=== PATIENT | female | born 1940 | race Hispanic/Latino ===

== ENCOUNTER 2021-06-28 12:55 | Inpatient (IN) | payer OTHER ==
[~2021-06-28] VITALS: Ht 152.4 cm; Wt 70.3 kg
[2021-06-28] VITALS (15 sets, daily range): BP systolic 88–174; BP diastolic 56–94
[2021-06-28] MEDS ORDERED: CEFAZOLIN SODIUM 1 GM VIAL ONE ×3 (13:03→16:42)
[2021-06-28] MEDS ORDERED: PAPAVERINE HCL 30 MG/ML 2ML VIAL ONE (13:04)
[2021-06-28] MEDS ORDERED: ESMOLOL HCL 10 MG/ML 10 ML VIAL ONE (13:20)
[2021-06-28] MEDS ORDERED: HEPARIN 10,000 UNIT/10ML (1,000 UNIT/ML) VIAL ONE ×2 (13:20→13:34)
[2021-06-28] MEDS ORDERED: LIDOCAINE PF 100MG/5ML (2%) SYRINGE 5ML ONE (13:20)
[2021-06-28] MEDS ORDERED: PROTAMINE SULFATE 10 MG/ML 25ML VIAL IV ONE (13:20)
[2021-06-28] MEDS ORDERED: NOREPINEPHRINE BITARTRATE 1 MG/1 ML ML IV ONE (13:21)
[2021-06-28] MEDS ORDERED: AMINOCAPROIC ACID 5,000MG VIAL ONE (13:21)
[2021-06-28] MEDS ORDERED: ROCURONIUM 10MG/1ML SYR 10 MG/ML ML ONE (13:21)
[2021-06-28] MEDS ORDERED: EPINEPHRINE PF 1MG AMP ONE (13:21)
[2021-06-28] MEDS ORDERED: SODIUM BICARB 50MEQ 50ML VIAL 150 ML ONE (13:21)
[2021-06-28 13:32] LABS: HEMATOCRIT 37.9 % (36-48); MEAN CORPUSCULAR HEMOGLOBIN 29.7 pg (27.0-33.0); MEAN CORPUSCULAR HGB CONC 32.5 g/dL (32.0-36.0); MEAN CORPUSCULAR VOLUME 91.5 fL (79-99); RED BLOOD CELL COUNT(AUTO) 4.14 MIL/uL (4.00-5.50); WHITE BLOOD COUNT (AUTO) 11.9 K/uL (4.8-10.8)
[2021-06-28 13:44] LABS: ABG BASE EXCESS -5.1 mmol/L (-2.0-3.0); ABG HCO3 19.4 mmol/L (21.0-28.0); ABG OXYGEN SATURATION 98.6 % (95.0-99.0); ABG PCO2 35 mmHg (32-45)
[2021-06-28 13:49] LABS: HEMOGLOBIN A1C 7.6 % (4.0-6.0)
[2021-06-28 13:50] LABS: INR 1.07 (0.85-1.15); PROTHROMBIN TIME 11.6 SEC (9.6-11.6)
[2021-06-28] MEDS ORDERED: POTASSIUM CHLORIDE 20MEQ/100ML 200 ML IV ONE ×2 (13:51→14:47)
[2021-06-28] MEDS ORDERED: INSULIN HUMULIN R 100 UNIT/ML 3ML ONE (13:52)
[2021-06-28 13:53] LABS: ALBUMIN 2.4 g/dL (3.5-5.0); BILIRUBIN,TOTAL 0.7 mg/dL (0.2-1.0); CREATININE 0.5 mg/dL (0.5-1.5); TOTAL PROTEIN, SERUM 5.6 g/dL (6.0-8.3)
[2021-06-28 13:55] LABS: POTASSIUM 2.5 mmol/L (3.5-5.1)
[2021-06-28] MEDS ORDERED: FENTANYL CITRATE PF 50 MCG/1 ML 2ML VIAL ONE ×5 (14:12→14:13)
[2021-06-28 14:34] LABS: ABG BASE EXCESS -3.1 mmol/L (-2.0-3.0); ABG HCO3 23.9 mmol/L (21.0-28.0); ABG OXYGEN SATURATION 98.3 % (95.0-99.0); ABG PCO2 51 mmHg (32-45)
[2021-06-28] MEDS ORDERED: ROCURONIUM BROMIDE 10MG/1ML 5ML VL ONE (14:47)
[2021-06-28 15:04] LABS: ABG BASE EXCESS -7.9 mmol/L (-2.0-3.0); ABG HCO3 18.9 mmol/L (21.0-28.0); ABG OXYGEN SATURATION 98.5 % (95.0-99.0); ABG PCO2 44 mmHg (32-45)
[2021-06-28] MEDS ORDERED: AMIODARONE 150MG VIAL ONE ×2 (15:18→16:28)
[2021-06-28] MEDS ORDERED: GLYCOPYRROLATE 1 MG/5 ML SYRINGE ONE (15:22)
[2021-06-28] MEDS ORDERED: 0.9%NACL 1000ML 1,000 ML IV ONE (15:23)
[2021-06-28] MEDS ORDERED: ATROPINE 1MG SYG IVP ONE (15:32)
[2021-06-28] MEDS ORDERED: COAGULATION FACTOR VIIA RECOMB 1 MG VIAL ONE (15:34)
[2021-06-28] MEDS ORDERED: NITROGLYCERIN 50MG/D5W 250ML 1 BOT ONE (15:40)
[2021-06-28 15:53] LABS: ABG BASE EXCESS -4.9 mmol/L (-2.0-3.0); ABG HCO3 19.1 mmol/L (21.0-28.0); ABG OXYGEN SATURATION 98.4 % (95.0-99.0); ABG PCO2 32 mmHg (32-45)
[2021-06-28] MEDS ORDERED: ALBUMIN (HUMAN) 5% 250 ML IV PRN (16:00)
[2021-06-28] MEDS ORDERED: MORPHINE 4 MG SYG IV PRN (16:00)
[2021-06-28] MEDS ORDERED: 0.9% NACL 500ML IV.SOLN 500 ML IV SCH (16:00)
[2021-06-28] MEDS ORDERED: AMINOCAPROIC ACID 5,000MG VIAL 15,000 MG in 0.9% NACL 250ML 250 ML IV SCH (16:00)
[2021-06-28] MEDS ORDERED: ONDANSETRON 4MG INJ IV PRN (16:00)
[2021-06-28] MEDS ORDERED: GLUCAGON 1MG KIT 1 MG ML IM PRN (16:00)
[2021-06-28] MEDS ORDERED: TRAMADOL HCL 50 MG TABLET PO PRN (16:00)
[2021-06-28] MEDS ORDERED: NITROGLYCERIN 50MG/D5W 250ML 250 BOT IV SCH (16:00)
[2021-06-28] MEDS ORDERED: MORPHINE 2 MG SYG IV PRN (16:00)
[2021-06-28] MEDS ORDERED: ACETAMINOPHEN 650 MG SUPPOSITORY RC PRN (16:00)
[2021-06-28] MEDS ORDERED: 0.9%NACL 10ML VIAL IVP PRN (16:00)
[2021-06-28] MEDS ORDERED: 0.9%NACL 1000ML 1,000 ML IV SCH (16:00)
[2021-06-28] MEDS ORDERED: POTASSIUM PHOS 15 mMOL+NS250ML 250 ML IV PRN (16:00)
[2021-06-28] MEDS ORDERED: DEXTROSE 50%-WATER 50 ML DISP.SYRIN IV PRN (16:00)
[2021-06-28] MEDS ORDERED: FENTANYL CITRATE PF 50 MCG/1 ML 20ML VIAL IJ ONE (16:16)
[2021-06-28 16:19] LABS: ABG BASE EXCESS -9.5 mmol/L (-2.0-3.0); ABG HCO3 13.8 mmol/L (21.0-28.0); ABG PCO2 24 mmHg (32-45)
[2021-06-28] MEDS ORDERED: SODIUM BICARB 8.4% 50ML SYRINGE ONE (16:21)
[2021-06-28] MEDS ORDERED: MAGNESIUM SULFATE 1 GM/2 ML VIAL ONE (16:29)
[2021-06-28 16:53] LABS: ABG BASE EXCESS -3.9 mmol/L (-2.0-3.0); ABG HCO3 22.1 mmol/L (21.0-28.0); ABG OXYGEN SATURATION 75.8 % (95.0-99.0); ABG PCO2 44 mmHg (32-45)
[2021-06-28] MEDS ORDERED: EPHEDRINE SULFATE 50 MG/ML AMPULE ONE (17:06)
[2021-06-28] MEDS ORDERED: MIDAZOLAM HCL 1 MG/ML 5ML VIAL ONE (17:17)
[2021-06-28] MEDS ORDERED: VASOPRESSIN 20 UNITS/ML 1ML VIAL ONE (17:18)
[2021-06-28] MEDS ORDERED: ALBUTEROL INHALER 90MCG/INH IH ONE (17:27)
[2021-06-28 17:28] LABS: ABG BASE EXCESS -5.7 mmol/L (-2.0-3.0); ABG HCO3 19.9 mmol/L (21.0-28.0); ABG OXYGEN SATURATION 93.8 % (95.0-99.0); ABG PCO2 39 mmHg (32-45)
[2021-06-28 18:07] LABS: ABG BASE EXCESS -4.7 mmol/L (-2.0-3.0); ABG HCO3 20.9 mmol/L (21.0-28.0); ABG OXYGEN SATURATION 89.5 % (95.0-99.0); ABG PCO2 41 mmHg (32-45)
[2021-06-28] MEDS ORDERED: ALBUMIN (HUMAN) 25% 50 ML IV ONE (18:07)
[2021-06-28] MEDS ORDERED: MANNITOL 25% 50ML VIAL IV ONE (18:07)
[2021-06-28] MEDS ORDERED: SODIUM BICARB 8.4% 50ML SYRINGE IVP ONE ×3 (18:07)
[2021-06-28] MEDS ORDERED: AMIODARONE 150MG VIAL IV ONE (18:07)
[2021-06-28] MEDS ORDERED: HEPARIN 10,000 UNIT/10ML (1,000 UNIT/ML) VIAL IV ONE (18:07)
[2021-06-28] MEDS ORDERED: AMINOCAPROIC ACID 5,000MG VIAL IV ONE (18:07)
[2021-06-28] MEDS ORDERED: MAGNESIUM SULFATE 1 GM/2 ML VIAL IM ONE ×3 (18:07)
[2021-06-28] MEDS ORDERED: PHENYLEPHRINE HCL 10 MG/ML 1ML VIAL IV ONE (18:07)
[2021-06-28] MEDS ORDERED: EPINEPHRINE 1MG SYG 10ML IVP ONE ×2 (18:07)
[2021-06-28] MEDS ORDERED: CACL 1GM SYG IVP ONE ×2 (18:07)
[2021-06-28 18:10] LABS: HEMATOCRIT 35.8 % (36-48); MEAN CORPUSCULAR HEMOGLOBIN 30.2 pg (27.0-33.0); MEAN CORPUSCULAR HGB CONC 32.7 g/dL (32.0-36.0); MEAN CORPUSCULAR VOLUME 92.3 fL (79-99); RED BLOOD CELL COUNT(AUTO) 3.88 MIL/uL (4.00-5.50); RED CELL DISTRIBUTION WIDTH 14.2 % (11.0-15.5); WHITE BLOOD COUNT (AUTO) 20.1 K/uL (4.8-10.8)
[2021-06-28] MEDS ORDERED: IPRATROPIUM/ALBUTEROL SULFATE 3 ML SOLUTION IH ONE (18:13)
[2021-06-28 18:21] LABS: INR 0.89 (0.85-1.15); MAGNESIUM 2.6 mg/dL (1.80-2.40); PHOSPHORUS 1.4 mg/dL (2.5-4.9); PROTHROMBIN TIME 9.8 SEC (9.6-11.6)
[2021-06-28 18:22] LABS: PARTIAL THROMBOPLASTIN TIME 28.2 SEC (26.3-35.5)
[2021-06-28 18:27] LABS: POTASSIUM 1.9 mmol/L (3.5-5.1)
[2021-06-28] MEDS ORDERED: AMIODARONE 900MG VIAL 900 MG in DEXTROSE 5%-WATER 500 ML IV SCH (18:30)
[2021-06-28 20:20] LABS: ABG BASE EXCESS 1.6 mmol/L (-2.0-3.0); ABG HCO3 26.2 mmol/L (21.0-28.0); ABG OXYGEN SATURATION 95.1 % (95.0-99.0); ABG PCO2 41 mmHg (32-45)
[2021-06-28] MEDS ORDERED: POTASSIUM CHLORIDE 10MEQ/100ML 100 ML IV ONE (20:27)
[2021-06-28] MEDS: CEFAZOLIN SODIUM 1 GM VIAL IV SCH (20:32)
[2021-06-28] MEDS: FAMOTIDINE 20MG VIAL IV SCH (20:32)
[2021-06-28 21:10] LABS: ABG BASE EXCESS 0.3 mmol/L (-2.0-3.0); ABG HCO3 24.9 mmol/L (21.0-28.0); ABG OXYGEN SATURATION 91.2 % (95.0-99.0); ABG PCO2 40 mmHg (32-45)
[2021-06-28] MEDS ORDERED: SOLU-MEDROL 40MG VIAL ONE (21:52)
[2021-06-28] MEDS: POTASSIUM CHLORIDE 20MEQ/100ML 100 ML IV PRN ×2 (21:54→23:11)
[2021-06-28] MEDS: SOLU-MEDROL 40MG VIAL IVP SCH (22:12)
[2021-06-28 22:13] LABS: ABG BASE EXCESS -0.1 mmol/L (-2.0-3.0); ABG HCO3 24.1 mmol/L (21.0-28.0); ABG OXYGEN SATURATION 90.6 % (95.0-99.0); ABG PCO2 38 mmHg (32-45)
[2021-06-28 23:16] LABS: ABG BASE EXCESS 2.1 mmol/L (-2.0-3.0); ABG HCO3 26.7 mmol/L (21.0-28.0); ABG PCO2 42 mmHg (32-45)
[2021-06-29] VITALS (38 sets, daily range): BP systolic 90–163; BP diastolic 48–91
[2021-06-29 00:13] LABS: ABG BASE EXCESS 1.7 mmol/L (-2.0-3.0); ABG HCO3 26.3 mmol/L (21.0-28.0); ABG OXYGEN SATURATION 91.3 % (95.0-99.0); ABG PCO2 41 mmHg (32-45)
[2021-06-29] MEDS: POTASSIUM CHLORIDE 20MEQ/100ML 100 ML IV PRN ×8 (00:33→15:56)
[2021-06-29 01:05] LABS: ABG BASE EXCESS 1.8 mmol/L (-2.0-3.0); ABG HCO3 25.9 mmol/L (21.0-28.0); ABG OXYGEN SATURATION 95.4 % (95.0-99.0); ABG PCO2 39 mmHg (32-45)
[2021-06-29] MEDS ORDERED: NOREPINEPHRINE 8MG/NS 250 ML 250 ML IV ONE ×2 (01:33→17:48)
[2021-06-29] MEDS: INSULIN REGULAR, HUMAN 3ML 100 UNIT in 0.9%NACL 100ML 99 ML IV SCH ×4 (01:56→13:52)
[2021-06-29 02:12] LABS: ABG BASE EXCESS -1.5 mmol/L (-2.0-3.0); ABG HCO3 22.2 mmol/L (21.0-28.0); ABG OXYGEN SATURATION 92.5 % (95.0-99.0); ABG PCO2 35 mmHg (32-45)
[2021-06-29 03:10] LABS: ABG BASE EXCESS -0.1 mmol/L (-2.0-3.0); ABG HCO3 23.5 mmol/L (21.0-28.0); ABG OXYGEN SATURATION 86.8 % (95.0-99.0); ABG PCO2 35 mmHg (32-45)
[2021-06-29] MEDS: SOLU-MEDROL 40MG VIAL IVP SCH ×3 (03:31→15:04)
[2021-06-29] MEDS: EPINEPHRINE PF 1MG AMP 10 MG in DEXTROSE 5%-WATER 250 ML IV PRN (03:38)
[2021-06-29] MEDS: VASOPRESSIN 40 UNITS in 0.9%NACL 50ML 40 ML IV PRN (03:39)
[2021-06-29 04:03] LABS: ABG BASE EXCESS 1.9 mmol/L (-2.0-3.0); ABG HCO3 24.7 mmol/L (21.0-28.0); ABG OXYGEN SATURATION 95.8 % (95.0-99.0); ABG PCO2 33 mmHg (32-45)
[2021-06-29 04:23] LABS: HEMATOCRIT 35.5 % (36-48); MEAN CORPUSCULAR HEMOGLOBIN 29.8 pg (27.0-33.0); MEAN CORPUSCULAR VOLUME 90.6 fL (79-99); NUCLEATED RED BLOOD CELLS 0.1 % (0.0-0.19); RED BLOOD CELL COUNT(AUTO) 3.92 MIL/uL (4.00-5.50); RED CELL DISTRIBUTION WIDTH 14.5 % (11.0-15.5); WHITE BLOOD COUNT (AUTO) 18.2 K/uL (4.8-10.8)
[2021-06-29] MEDS: CEFAZOLIN SODIUM 1 GM VIAL IV SCH ×2 (04:33→13:06)
[2021-06-29] MEDS: SODIUM BICARB 50MEQ 50ML VIAL IV PRN (04:39)
[2021-06-29 04:41] LABS: INR 1.05 (0.85-1.15); PROTHROMBIN TIME 11.4 SEC (9.6-11.6)
[2021-06-29 04:42] LABS: PARTIAL THROMBOPLASTIN TIME 31.6 SEC (26.3-35.5)
[2021-06-29 04:51] LABS: ALBUMIN 2.7 g/dL (3.5-5.0); BILIRUBIN,TOTAL 0.4 mg/dL (0.2-1.0); CREATININE 1.3 mg/dL (0.5-1.5); MAGNESIUM 1.8 mg/dL (1.80-2.40); PHOSPHORUS 0.8 mg/dL (2.5-4.9)
[2021-06-29 05:05] LABS: ABG BASE EXCESS 0.6 mmol/L (-2.0-3.0); ABG HCO3 23.3 mmol/L (21.0-28.0); ABG OXYGEN SATURATION 95.5 % (95.0-99.0); ABG PCO2 31 mmHg (32-45)
[2021-06-29 06:28] LABS: ABG BASE EXCESS 0.7 mmol/L (-2.0-3.0); ABG HCO3 23.5 mmol/L (21.0-28.0); ABG OXYGEN SATURATION 94.2 % (95.0-99.0); ABG PCO2 32 mmHg (32-45)
[2021-06-29 07:43] LABS: ABG BASE EXCESS 0.9 mmol/L (-2.0-3.0); ABG HCO3 23.7 mmol/L (21.0-28.0); ABG OXYGEN SATURATION 98.2 % (95.0-99.0); ABG PCO2 32 mmHg (32-45)
[2021-06-29] MEDS: CALCIUM GLUC 1GM VIAL 1 GM in 0.9%NACL 50ML 50 ML IV PRN ×2 (07:55→17:44)
[2021-06-29] MEDS: MAGNESIUM 2GM PREMIX 50ML 50 ML IV PRN (07:55)
[2021-06-29] MEDS: FAMOTIDINE 20MG VIAL IV SCH ×2 (08:30→21:37)
[2021-06-29 09:11] LABS: ABG BASE EXCESS 2.2 mmol/L (-2.0-3.0); ABG OXYGEN SATURATION 98.4 % (95.0-99.0); ABG PCO2 33 mmHg (32-45)
[2021-06-29] MEDS: PROPOFOL 1000 MG/100 ML 100 ML IV PRN ×3 (09:53→23:30)
[2021-06-29 10:09] LABS: ABG BASE EXCESS 1.9 mmol/L (-2.0-3.0); ABG HCO3 24.5 mmol/L (21.0-28.0); ABG OXYGEN SATURATION 97.1 % (95.0-99.0); ABG PCO2 31 mmHg (32-45)
[2021-06-29] MEDS ORDERED: MILRINONE-D5W 20 MG/100 ML 100 ML IV ONE (10:26)
[2021-06-29 11:31] LABS: ABG PCO2 31 mmHg (32-45)
[2021-06-29 11:32] LABS: ABG BASE EXCESS 1.6 mmol/L (-2.0-3.0); ABG HCO3 24.2 mmol/L (21.0-28.0); ABG OXYGEN SATURATION 95.1 % (95.0-99.0)
[2021-06-29 14:13] LABS: ABG BASE EXCESS 0.9 mmol/L (-2.0-3.0); ABG HCO3 23.4 mmol/L (21.0-28.0); ABG OXYGEN SATURATION 96.4 % (95.0-99.0); ABG PCO2 30 mmHg (32-45)
[2021-06-29] MEDS: TRAMADOL HCL 50 MG TABLET PO PRN (14:47)
[2021-06-29] MEDS ORDERED: ZOSYN 3.375GM+NS 50ML 3.38 GM in 0.9%NACL 50ML 50 ML IV SCH (15:00)
[2021-06-29] MEDS ORDERED: ZOSYN IV SCH (15:00)
[2021-06-29] MEDS ORDERED: FUROSEMIDE 20MG VIAL IV SCH (15:00)
[2021-06-29] MEDS ORDERED: [UNRECOGNIZED DRUG - OTHER] IV SCH (15:00)
[2021-06-29] MEDS ORDERED: ZOSYN 3.375GM+NS 50ML 50 ML IV SCH (16:00)
[2021-06-29 17:26] LABS: ABG BASE EXCESS -1.2 mmol/L (-2.0-3.0); ABG HCO3 21.3 mmol/L (21.0-28.0); ABG PCO2 28 mmHg (32-45)
[2021-06-29] MEDS: MEROPENEM 1 GM VIAL IVP SCH (20:00)
[2021-06-29 21:08] LABS: ABG BASE EXCESS 0.5 mmol/L (-2.0-3.0); ABG OXYGEN SATURATION 96.5 % (95.0-99.0); ABG PCO2 28 mmHg (32-45)
[2021-06-29] MEDS: ATORVASTATIN 20 MG TABLET PO SCH (21:37)
[2021-06-30] VITALS (57 sets, daily range): BP systolic 53–175; BP diastolic 28–83
[2021-06-30 01:01] LABS: ABG BASE EXCESS 1.9 mmol/L (-2.0-3.0); ABG HCO3 24.7 mmol/L (21.0-28.0); ABG OXYGEN SATURATION 93.1 % (95.0-99.0); ABG PCO2 31 mmHg (32-45)
[2021-06-30 04:03] LABS: ABG BASE EXCESS 0.5 mmol/L (-2.0-3.0); ABG HCO3 23.4 mmol/L (21.0-28.0); ABG OXYGEN SATURATION 92.2 % (95.0-99.0); ABG PCO2 31 mmHg (32-45)
[2021-06-30] MEDS: POTASSIUM CHLORIDE 20MEQ/100ML 100 ML IV PRN ×4 (04:04→20:13)
[2021-06-30] MEDS: INSULIN REGULAR, HUMAN 3ML 100 UNIT in 0.9%NACL 100ML 99 ML IV SCH ×2 (04:06)
[2021-06-30] MEDS: EPINEPHRINE PF 1MG AMP 10 MG in DEXTROSE 5%-WATER 250 ML IV PRN ×2 (04:07→15:22)
[2021-06-30 04:29] LABS: HEMATOCRIT 24.4 % (36-48); MEAN CORPUSCULAR HEMOGLOBIN 30.4 pg (27.0-33.0); MEAN CORPUSCULAR HGB CONC 32.8 g/dL (32.0-36.0); MEAN CORPUSCULAR VOLUME 92.8 fL (79-99); NUCLEATED RED BLOOD CELLS 0.4 % (0.0-0.19); RED BLOOD CELL COUNT(AUTO) 2.63 MIL/uL (4.00-5.50); WHITE BLOOD COUNT (AUTO) 20.1 K/uL (4.8-10.8)
[2021-06-30 04:43] LABS: INR 1.04 (0.85-1.15); PROTHROMBIN TIME 11.3 SEC (9.6-11.6)
[2021-06-30 04:45] LABS: PARTIAL THROMBOPLASTIN TIME 26.1 SEC (26.3-35.5)
[2021-06-30 04:46] LABS: ALBUMIN 2.9 g/dL (3.5-5.0); BILIRUBIN,TOTAL 0.8 mg/dL (0.2-1.0); CREATININE 0.9 mg/dL (0.5-1.5); MAGNESIUM 1.7 mg/dL (1.80-2.40); POTASSIUM 3.5 mmol/L (3.5-5.1)
[2021-06-30] MEDS: PROPOFOL 1000 MG/100 ML 100 ML IV PRN (05:23)
[2021-06-30] MEDS: MEROPENEM 1 GM VIAL IVP SCH ×2 (06:44→17:35)
[2021-06-30] MEDS: MAGNESIUM 2GM PREMIX 50ML 50 ML IV PRN (06:45)
[2021-06-30] MEDS: FAMOTIDINE 20MG VIAL IV SCH ×2 (08:04→20:12)
[2021-06-30] MEDS: ASPIRIN 81MG CHEW TAB PO SCH (08:05)
[2021-06-30] MEDS: TRAMADOL HCL 50 MG TABLET PO PRN (08:05)
[2021-06-30] MEDS: CALCIUM GLUC 1GM VIAL 1 GM in 0.9%NACL 50ML 50 ML IV PRN ×2 (08:05→16:47)
[2021-06-30] MEDS ORDERED: FUROSEMIDE 20MG VIAL IV SCH (09:00)
[2021-06-30 09:08] LABS: ABG HCO3 22.5 mmol/L (21.0-28.0); ABG OXYGEN SATURATION 97.7 % (95.0-99.0); ABG PCO2 30 mmHg (32-45)
[2021-06-30] MEDS ORDERED: FUROSEMIDE 100MG VIAL 100 MG in 0.9%NACL 100ML 100 ML IV SCH (09:30)
[2021-06-30] MEDS ORDERED: NOREPINEPHRINE 8MG/NS 250 ML 250 ML IV ONE (10:35)
[2021-06-30 11:15] LABS: ABG BASE EXCESS -4.6 mmol/L (-2.0-3.0); ABG HCO3 18.6 mmol/L (21.0-28.0); ABG OXYGEN SATURATION 78.4 % (95.0-99.0); ABG PCO2 28 mmHg (32-45)
[2021-06-30] MEDS ORDERED: ENOXAPARIN SODIUM 1 MG/KG SQ ONE (11:30)
[2021-06-30] MEDS ORDERED: ENOXAPARIN SODIUM 80 MG/0.8 ML SQ SCH (11:30)
[2021-06-30 12:06] LABS: ABG BASE EXCESS 1.8 mmol/L (-2.0-3.0); ABG HCO3 24.7 mmol/L (21.0-28.0); ABG OXYGEN SATURATION 98.5 % (95.0-99.0); ABG PCO2 33 mmHg (32-45)
[2021-06-30] MEDS ORDERED: FENTANYL 2500MCG+NS 250ML 250 ML IV ONE (12:10)
[2021-06-30] MEDS ORDERED: MIDAZOLAM 100MG-0.9% NS 100ML 100 ML IV ONE (12:11)
[2021-06-30] MEDS ORDERED: FENTANYL CITRATE PF 0.05 MG/ML 1,000 MCG in 0.9%NACL 100ML 100 ML IVPB SCH (12:30)
[2021-06-30] MEDS ORDERED: MIDAZOLAM 100MG-0.9% NS 100ML 100ML BAG IV SCH (12:30)
[2021-06-30] MEDS ORDERED: FENTANYL 2500MCG+NS 250ML 250 ML IV SCH (12:30)
[2021-06-30] MEDS: SODIUM BICARB 50MEQ 50ML VIAL IV PRN ×2 (12:33→15:50)
[2021-06-30] MEDS: INSULIN HUMULIN R 100 UNIT/ML 3ML SQ SCH ×2 (12:47→17:35)
[2021-06-30] MEDS ORDERED: IOHEXOL 350 MG/ML 100ML INFUS..BTL IV ONE (13:30)
[2021-06-30] MEDS ORDERED: MILRINONE-D5W 20 MG/100 ML 100 ML IV ONE (15:20)
[2021-06-30 15:43] LABS: ABG BASE EXCESS -3.3 mmol/L (-2.0-3.0); ABG HCO3 20.1 mmol/L (21.0-28.0); ABG PCO2 31 mmHg (32-45)
[2021-06-30 19:54] LABS: ABG BASE EXCESS 1.8 mmol/L (-2.0-3.0); ABG HCO3 24.9 mmol/L (21.0-28.0); ABG OXYGEN SATURATION 97.9 % (95.0-99.0); ABG PCO2 34 mmHg (32-45)
[2021-06-30] MEDS: ACETAMINOPHEN 325 MG TAB PO PRN (20:11)
[2021-06-30] MEDS: ATORVASTATIN 20 MG TABLET PO SCH (20:11)
[2021-06-30] MEDS ORDERED: FUROSEMIDE 40MG VIAL IV SCH (21:00)
[2021-06-30] MEDS: VASOPRESSIN 40 UNITS in 0.9%NACL 50ML 40 ML IV PRN (21:06)
[2021-06-30 23:13] LABS: CREATININE 1.2 mg/dL (0.5-1.5); MAGNESIUM 1.9 mg/dL (1.80-2.40); POTASSIUM 3.8 mmol/L (3.5-5.1)
[2021-07-01] VITALS (69 sets, daily range): BP systolic 90–148; BP diastolic 40–72
[2021-07-01 00:08] LABS: ABG BASE EXCESS 1.7 mmol/L (-2.0-3.0); ABG HCO3 24.3 mmol/L (21.0-28.0); ABG OXYGEN SATURATION 98.7 % (95.0-99.0); ABG PCO2 31 mmHg (32-45)
[2021-07-01] MEDS: NOREPINEPHRINE 4MG/NS 250ML 250 ML IV PRN (00:17)
[2021-07-01] MEDS: POTASSIUM CHLORIDE 20MEQ/100ML 100 ML IV PRN ×4 (01:15→16:36)
[2021-07-01] MEDS: INSULIN HUMULIN R 100 UNIT/ML 3ML SQ SCH ×4 (01:30→17:46)
[2021-07-01] MEDS: MAGNESIUM 2GM PREMIX 50ML 50 ML IV PRN (02:51)
[2021-07-01 03:55] LABS: ABG BASE EXCESS 1.3 mmol/L (-2.0-3.0); ABG HCO3 24.7 mmol/L (21.0-28.0); ABG OXYGEN SATURATION 96.7 % (95.0-99.0); ABG PCO2 35 mmHg (32-45)
[2021-07-01 04:13] LABS: HEMATOCRIT 30.7 % (36-48); MEAN CORPUSCULAR HEMOGLOBIN 29.7 pg (27.0-33.0); MEAN CORPUSCULAR HGB CONC 31.6 g/dL (32.0-36.0); MEAN CORPUSCULAR VOLUME 93.9 fL (79-99); NUCLEATED RED BLOOD CELLS 4.1 % (0.0-0.19); RED BLOOD CELL COUNT(AUTO) 3.27 MIL/uL (4.00-5.50); RED CELL DISTRIBUTION WIDTH 15.4 % (11.0-15.5)
[2021-07-01 04:26] LABS: INR 1.05 (0.85-1.15); PROTHROMBIN TIME 11.4 SEC (9.6-11.6)
[2021-07-01 04:28] LABS: PARTIAL THROMBOPLASTIN TIME 27.9 SEC (26.3-35.5)
[2021-07-01 05:54] LABS: ALBUMIN 2.8 g/dL (3.5-5.0); BILIRUBIN,TOTAL 0.9 mg/dL (0.2-1.0); CREATININE 1.2 mg/dL (0.5-1.5); MAGNESIUM 2.2 mg/dL (1.80-2.40); TOTAL PROTEIN, SERUM 5.9 g/dL (6.0-8.3)
[2021-07-01] MEDS: MEROPENEM 1 GM VIAL IVP SCH ×2 (06:31→18:41)
[2021-07-01 07:11] LABS: ABG BASE EXCESS 3.1 mmol/L (-2.0-3.0); ABG HCO3 26.7 mmol/L (21.0-28.0); ABG OXYGEN SATURATION 98.6 % (95.0-99.0); ABG PCO2 37 mmHg (32-45)
[2021-07-01] MEDS: FAMOTIDINE 20MG VIAL IV SCH ×2 (09:17→20:18)
[2021-07-01] MEDS: FUROSEMIDE 20MG VIAL IV SCH ×2 (09:17→20:18)
[2021-07-01] MEDS: ASPIRIN 81MG CHEW TAB PO SCH (09:17)
[2021-07-01 11:38] LABS: ABG BASE EXCESS 4.8 mmol/L (-2.0-3.0); ABG HCO3 27.7 mmol/L (21.0-28.0); ABG OXYGEN SATURATION 98.1 % (95.0-99.0); ABG PCO2 35 mmHg (32-45)
[2021-07-01] MEDS: ACETAMINOPHEN 325 MG TAB PO PRN ×3 (11:53→20:19)
[2021-07-01] MEDS: CALCIUM GLUC 1GM VIAL 1 GM in 0.9%NACL 50ML 50 ML IV PRN ×2 (13:02→17:39)
[2021-07-01 16:23] LABS: ABG BASE EXCESS 5.1 mmol/L (-2.0-3.0); ABG HCO3 27.6 mmol/L (21.0-28.0); ABG OXYGEN SATURATION 98.1 % (95.0-99.0); ABG PCO2 33 mmHg (32-45)
[2021-07-01] MEDS: ATORVASTATIN 20 MG TABLET PO SCH (20:18)
[2021-07-01 20:33] LABS: ABG BASE EXCESS 5.5 mmol/L (-2.0-3.0); ABG HCO3 29.5 mmol/L (21.0-28.0); ABG OXYGEN SATURATION 97.8 % (95.0-99.0); ABG PCO2 41 mmHg (32-45)
[2021-07-02] VITALS (57 sets, daily range): BP systolic 61–154; BP diastolic 26–88
[2021-07-02] MEDS: INSULIN HUMULIN R 100 UNIT/ML 3ML SQ SCH ×4 (00:30→18:18)
[2021-07-02] MEDS: AMIODARONE 900MG VIAL 360 MG in DEXTROSE 5%-WATER 200 ML IV STA ×2 (01:18→01:20)
[2021-07-02] MEDS ORDERED: AMIODARONE 900MG VIAL IV ONE (01:19)
[2021-07-02] MEDS: AMIODARONE IV SCH (01:20)
[2021-07-02] MEDS: NACL 0.9% IV SCH (01:20)
[2021-07-02 01:30] LABS: BASOPHILS % (AUTO) 0.4 % (0.0-5.0); EOSINOPHILS % (AUTO) 0.7 % (0.0-8.0); HEMATOCRIT 30.6 % (36-48); LYMPHOCYTES % (AUTO) 12.2 % (21.0-51.0); MEAN CORPUSCULAR HEMOGLOBIN 29.9 pg (27.0-33.0); MEAN CORPUSCULAR VOLUME 96.2 fL (79-99); MONOCYTES % (AUTO) 4.7 % (3.0-13.0); NEUTROPHILS % (AUTO) 81.1 % (40.0-77.0); NUCLEATED RED BLOOD CELLS 3.6 % (0.0-0.19); PLATELET COUNT (AUTO) 78 K/uL (130-400); RED BLOOD CELL COUNT(AUTO) 3.18 MIL/uL (4.00-5.50); RED CELL DISTRIBUTION WIDTH 14.9 % (11.0-15.5); WHITE BLOOD COUNT (AUTO) 21.3 K/uL (4.8-10.8)
[2021-07-02] MEDS ORDERED: AMIODARONE 150MG VIAL 150 MG in DEXTROSE 5%-WATER 100 ML IV SCH (01:30)
[2021-07-02 01:45] LABS: ALBUMIN 2.6 g/dL (3.5-5.0); TOTAL PROTEIN, SERUM 5.9 g/dL (6.0-8.3)
[2021-07-02 01:48] LABS: INR 1.05 (0.85-1.15); PROTHROMBIN TIME 11.4 SEC (9.6-11.6)
[2021-07-02 01:49] LABS: PARTIAL THROMBOPLASTIN TIME 23.9 SEC (26.3-35.5)
[2021-07-02 01:49] LABS: ABG BASE EXCESS 0.4 mmol/L (-2.0-3.0); ABG OXYGEN SATURATION 87.2 % (95.0-99.0); ABG PCO2 40 mmHg (32-45)
[2021-07-02 04:00] LABS: ABG HCO3 26.5 mmol/L (21.0-28.0); ABG OXYGEN SATURATION 99.2 % (95.0-99.0); ABG PCO2 36 mmHg (32-45)
[2021-07-02] MEDS: CALCIUM GLUC 1GM VIAL 1 GM in 0.9%NACL 50ML 50 ML IV PRN ×2 (05:00→15:43)
[2021-07-02] MEDS: MEROPENEM 1 GM VIAL IVP SCH ×2 (06:30→18:20)
[2021-07-02] MEDS: EPINEPHRINE PF 1MG AMP 10 MG in DEXTROSE 5%-WATER 250 ML IV PRN ×2 (06:51→21:39)
[2021-07-02 08:08] LABS: ABG BASE EXCESS -1.4 mmol/L (-2.0-3.0); ABG HCO3 22.4 mmol/L (21.0-28.0); ABG OXYGEN SATURATION 98.7 % (95.0-99.0); ABG PCO2 34 mmHg (32-45)
[2021-07-02] MEDS: FUROSEMIDE 20MG VIAL IV SCH ×2 (08:17→20:49)
[2021-07-02] MEDS: FAMOTIDINE 20MG VIAL IV SCH ×2 (08:18→20:50)
[2021-07-02] MEDS: ACETAMINOPHEN 325 MG TAB PO PRN (08:19)
[2021-07-02] MEDS: ASPIRIN 81MG CHEW TAB PO SCH (08:40)
[2021-07-02] MEDS ORDERED: SODIUM BICARB 50MEQ 50ML VIAL 50 ML ONE (08:51)
[2021-07-02 12:46] LABS: ABG HCO3 23.5 mmol/L (21.0-28.0); ABG OXYGEN SATURATION 96.9 % (95.0-99.0); ABG PCO2 35 mmHg (32-45)
[2021-07-02 15:39] LABS: ABG BASE EXCESS 0.4 mmol/L (-2.0-3.0); ABG HCO3 24.1 mmol/L (21.0-28.0); ABG PCO2 35 mmHg (32-45)
[2021-07-02] MEDS: POTASSIUM CHLORIDE 20MEQ/100ML 100 ML IV PRN ×2 (16:08→16:44)
[2021-07-02 18:51] LABS: MAGNESIUM 1.7 mg/dL (1.80-2.40); POTASSIUM 4.5 mmol/L (3.5-5.1)
[2021-07-02] MEDS ORDERED: RENAL DOSE IV PRN (19:00)
[2021-07-02] MEDS ORDERED: VANCOMYCIN PROTOCOL PER PHARMACY IV SCH (19:00)
[2021-07-02] MEDS ORDERED: LIDOCAINE PF 100MG/5ML (2%) SYRINGE 5ML ONE (19:07)
[2021-07-02] MEDS ORDERED: LIDOCAINE 2G/250ML 250 ML IV ONE (19:07)
[2021-07-02] MEDS ORDERED: MILRINONE-D5W 20 MG/100 ML 100 ML IV ONE (19:17)
[2021-07-02] MEDS: LIDOCAINE 2G/250ML 250 ML IV SCH (19:30)
[2021-07-02] MEDS ORDERED: PHARMACY COMMUNICATION MISC SCH (20:00)
[2021-07-02] MEDS: MAGNESIUM 2GM PREMIX 50ML 50 ML IV PRN (20:00)
[2021-07-02] MEDS: VANCOMYCIN 1G/250ML KIT 250 ML IV SCH (20:01)
[2021-07-02] MEDS: ATORVASTATIN 20 MG TABLET PO SCH (20:50)
[2021-07-02] MEDS: NOREPINEPHRINE 4MG/NS 250ML 250 ML IV PRN (21:41)
[2021-07-03] VITALS (27 sets, daily range): BP systolic 89–182; BP diastolic 42–107
[2021-07-03] MEDS: POTASSIUM CHLORIDE 20MEQ/100ML 100 ML IV PRN ×3 (00:15→22:13)
[2021-07-03] MEDS: CALCIUM GLUC 1GM VIAL 1 GM in 0.9%NACL 50ML 50 ML IV PRN ×2 (00:16→22:11)
[2021-07-03] MEDS: INSULIN HUMULIN R 100 UNIT/ML 3ML SQ SCH ×4 (00:16→17:59)
[2021-07-03 03:36] LABS: ABG BASE EXCESS 1.7 mmol/L (-2.0-3.0); ABG HCO3 25.5 mmol/L (21.0-28.0); ABG OXYGEN SATURATION 98.4 % (95.0-99.0); ABG PCO2 37 mmHg (32-45)
[2021-07-03 03:36] LABS: ABG BASE EXCESS 1.7 mmol/L (-2.0-3.0); ABG HCO3 25.2 mmol/L (21.0-28.0); ABG OXYGEN SATURATION 98.5 % (95.0-99.0); ABG PCO2 36 mmHg (32-45)
[2021-07-03 03:55] LABS: BASOPHILS % (AUTO) 0.5 % (0.0-5.0); EOSINOPHILS % (AUTO) 1.2 % (0.0-8.0); LYMPHOCYTES % (AUTO) 7.5 % (21.0-51.0); MEAN CORPUSCULAR HEMOGLOBIN 30.2 pg (27.0-33.0); MEAN CORPUSCULAR HGB CONC 31.9 g/dL (32.0-36.0); MEAN CORPUSCULAR VOLUME 94.5 fL (79-99); MONOCYTES % (AUTO) 4.2 % (3.0-13.0); NEUTROPHILS % (AUTO) 83.5 % (40.0-77.0); NUCLEATED RED BLOOD CELLS 3.9 % (0.0-0.19); PLATELET COUNT (AUTO) 52 K/uL (130-400); RED BLOOD CELL COUNT(AUTO) 3.28 MIL/uL (4.00-5.50); RED CELL DISTRIBUTION WIDTH 14.5 % (11.0-15.5); WHITE BLOOD COUNT (AUTO) 23.3 K/uL (4.8-10.8)
[2021-07-03 04:08] LABS: ALBUMIN 2.4 g/dL (3.5-5.0); CREATININE 0.9 mg/dL (0.5-1.5); POTASSIUM 4.8 mmol/L (3.5-5.1); TOTAL PROTEIN, SERUM 5.8 g/dL (6.0-8.3)
[2021-07-03] MEDS: MAGNESIUM 2GM PREMIX 50ML 50 ML IV PRN (04:19)
[2021-07-03 04:41] LABS: INR 1.11 (0.85-1.15)
[2021-07-03] MEDS ORDERED: PHARMACY COMMUNICATION MISC SCH ×2 (06:30→19:30)
[2021-07-03] MEDS: MEROPENEM 1 GM VIAL IVP SCH ×2 (06:36→19:36)
[2021-07-03 07:15] LABS: ABG BASE EXCESS 1.4 mmol/L (-2.0-3.0); ABG HCO3 25.5 mmol/L (21.0-28.0); ABG OXYGEN SATURATION 97.8 % (95.0-99.0); ABG PCO2 38 mmHg (32-45)
[2021-07-03 07:45] LABS: ABG HCO3 24.7 mmol/L (21.0-28.0); ABG OXYGEN SATURATION 96.4 % (95.0-99.0); ABG PCO2 36 mmHg (32-45)
[2021-07-03] MEDS: INSULIN GLARGINE 100 UNITS/ML 10 ML VIAL SQ SCH (08:26)
[2021-07-03] MEDS: FUROSEMIDE 20MG VIAL IV SCH ×2 (08:42→20:08)
[2021-07-03] MEDS: FAMOTIDINE 20MG VIAL IV SCH ×2 (08:47→20:08)
[2021-07-03] MEDS: ENOXAPARIN SODIUM 40 MG/0.4 ML SYRINGE SQ SCH (08:49)
[2021-07-03] MEDS: ASPIRIN 81MG CHEW TAB PO SCH (08:50)
[2021-07-03] MEDS: AMIODARONE IV SCH (09:14)
[2021-07-03] MEDS: NACL 0.9% IV SCH (09:14)
[2021-07-03] MEDS: NOREPINEPHRINE 4MG/NS 250ML 250 ML IV PRN (11:41)
[2021-07-03 11:54] LABS: ABG BASE EXCESS 1.1 mmol/L (-2.0-3.0); ABG HCO3 24.8 mmol/L (21.0-28.0); ABG OXYGEN SATURATION 96.9 % (95.0-99.0); ABG PCO2 36 mmHg (32-45)
[2021-07-03] MEDS: EPINEPHRINE PF 1MG AMP 10 MG in DEXTROSE 5%-WATER 250 ML IV PRN (12:26)
[2021-07-03 15:11] LABS: CREATININE 0.8 mg/dL (0.5-1.5); POTASSIUM 3.9 mmol/L (3.5-5.1)
[2021-07-03 15:58] LABS: ABG BASE EXCESS 1.1 mmol/L (-2.0-3.0); ABG HCO3 23.9 mmol/L (21.0-28.0); ABG OXYGEN SATURATION 96.3 % (95.0-99.0); ABG PCO2 31 mmHg (32-45)
[2021-07-03] MEDS: LIDOCAINE 2G/250ML 250 ML IV SCH (19:42)
[2021-07-03] MEDS: VANCOMYCIN 1G/250ML KIT 250 ML IV SCH (19:49)
[2021-07-03 19:54] LABS: ABG BASE EXCESS 3.7 mmol/L (-2.0-3.0); ABG HCO3 26.7 mmol/L (21.0-28.0); ABG OXYGEN SATURATION 96.3 % (95.0-99.0); ABG PCO2 34 mmHg (32-45)
[2021-07-03] MEDS ORDERED: EPINEPHRINE PF 1MG AMP 10 MG in DEXTROSE 5%-WATER 250 ML IV PRN (20:00)
[2021-07-03] MEDS ORDERED: NOREPINEPHRINE 4MG/NS 250ML 250 ML IV ONE (20:03)
[2021-07-03] MEDS: ATORVASTATIN 20 MG TABLET PO SCH (20:08)
[2021-07-04] VITALS (26 sets, daily range): BP systolic 83–164; BP diastolic 38–79
[2021-07-04 00:07] LABS: ABG BASE EXCESS 3.3 mmol/L (-2.0-3.0); ABG HCO3 25.9 mmol/L (21.0-28.0); ABG OXYGEN SATURATION 95.9 % (95.0-99.0); ABG PCO2 32 mmHg (32-45)
[2021-07-04] MEDS: INSULIN HUMULIN R 100 UNIT/ML 3ML SQ SCH ×4 (00:10→18:08)
[2021-07-04] MEDS: POTASSIUM CHLORIDE 20MEQ/100ML 100 ML IV PRN ×4 (00:11→13:46)
[2021-07-04] MEDS: CALCIUM GLUC 1GM VIAL 1 GM in 0.9%NACL 50ML 50 ML IV PRN ×3 (00:11→14:53)
[2021-07-04 02:47] LABS: ABG BASE EXCESS 1.3 mmol/L (-2.0-3.0); ABG OXYGEN SATURATION 94.5 % (95.0-99.0); ABG PCO2 32 mmHg (32-45)
[2021-07-04 02:59] LABS: BASOPHILS % (AUTO) 0.6 % (0.0-5.0); EOSINOPHILS % (AUTO) 0.9 % (0.0-8.0); HEMATOCRIT 30.9 % (36-48); LYMPHOCYTES % (AUTO) 8.7 % (21.0-51.0); MEAN CORPUSCULAR HEMOGLOBIN 30.1 pg (27.0-33.0); MEAN CORPUSCULAR HGB CONC 32.7 g/dL (32.0-36.0); NEUTROPHILS % (AUTO) 79.1 % (40.0-77.0); NUCLEATED RED BLOOD CELLS 5.7 % (0.0-0.19); PLATELET COUNT (AUTO) 79 K/uL (130-400); RED BLOOD CELL COUNT(AUTO) 3.36 MIL/uL (4.00-5.50); RED CELL DISTRIBUTION WIDTH 14.1 % (11.0-15.5)
[2021-07-04 03:11] LABS: INR 1.09 (0.85-1.15); PROTHROMBIN TIME 11.8 SEC (9.6-11.6)
[2021-07-04 03:12] LABS: PARTIAL THROMBOPLASTIN TIME 25.1 SEC (26.3-35.5)
[2021-07-04 03:13] LABS: ALBUMIN 2.2 g/dL (3.5-5.0); BILIRUBIN,TOTAL 0.9 mg/dL (0.2-1.0); CREATININE 0.7 mg/dL (0.5-1.5); MAGNESIUM 1.7 mg/dL (1.80-2.40); PHOSPHORUS 1.7 mg/dL (2.5-4.9); TOTAL PROTEIN, SERUM 5.7 g/dL (6.0-8.3)
[2021-07-04] MEDS: MAGNESIUM 2GM PREMIX 50ML 50 ML IV PRN ×2 (03:45→15:24)
[2021-07-04 03:51] LABS: BAND NEUTROPHILS % (MANUAL) 10 % (0-2); EOSINOPHILS % (MANUAL) 3 % (1-6); LYMPHOCYTES % (MANUAL) 6 % (22-44); MAN.DIFF COMMENT-IMPRESSION MANUAL DIFFERENTIAL; MONOCYTES % (MANUAL) 2 % (2-9); SEGMENTED NEUTROPHILS % 79 % (40-70)
[2021-07-04 03:52] LABS: PLATELET MORPHOLOGY COMMENT MARKED DECREASE
[2021-07-04] MEDS ORDERED: PHARMACY COMMUNICATION MISC SCH ×2 (04:00→06:30)
[2021-07-04 06:13] LABS: ABG BASE EXCESS 0.8 mmol/L (-2.0-3.0); ABG HCO3 22.9 mmol/L (21.0-28.0); ABG OXYGEN SATURATION 95.3 % (95.0-99.0); ABG PCO2 29 mmHg (32-45)
[2021-07-04] MEDS: INSULIN GLARGINE 100 UNITS/ML 10 ML VIAL SQ SCH ×3 (06:20→20:46)
[2021-07-04] MEDS ORDERED: CALCIUM GLUC 1GM VIAL 1 GM in 0.9%NACL 50ML 50 ML IV PRN (07:00)
[2021-07-04] MEDS: MEROPENEM 1 GM VIAL IVP SCH ×2 (08:06→20:45)
[2021-07-04] MEDS: FUROSEMIDE 20MG VIAL IV SCH ×2 (08:09→20:44)
[2021-07-04] MEDS: FAMOTIDINE 20MG VIAL IV SCH ×2 (08:10→20:46)
[2021-07-04] MEDS: ASPIRIN 81MG CHEW TAB PO SCH (08:12)
[2021-07-04] MEDS: ENOXAPARIN SODIUM 40 MG/0.4 ML SYRINGE SQ SCH (08:13)
[2021-07-04] MEDS: NOREPINEPHRINE 4MG/NS 250ML 250 ML IV SCH ×2 (10:45→19:16)
[2021-07-04 12:59] LABS: ABG BASE EXCESS 4.7 mmol/L (-2.0-3.0); ABG HCO3 27.2 mmol/L (21.0-28.0); ABG OXYGEN SATURATION 92.3 % (95.0-99.0); ABG PCO2 33 mmHg (32-45)
[2021-07-04] MEDS ORDERED: AMIODARONE 150MG VIAL 150 MG in DEXTROSE 5%-WATER 100 ML IV STA (15:55)
[2021-07-04] MEDS ORDERED: AMIODARONE 900MG VIAL 360 MG in DEXTROSE 5%-WATER 200 ML IV SCH (16:30)
[2021-07-04] MEDS: ACETAMINOPHEN 325 MG TAB PO PRN (17:59)
[2021-07-04 18:25] LABS: CREATININE 0.8 mg/dL (0.5-1.5); POTASSIUM 4.2 mmol/L (3.5-5.1)
[2021-07-04 19:55] LABS: ABG BASE EXCESS 0.9 mmol/L (-2.0-3.0); ABG HCO3 23.6 mmol/L (21.0-28.0); ABG OXYGEN SATURATION 90.1 % (95.0-99.0); ABG PCO2 31 mmHg (32-45)
[2021-07-04] MEDS ORDERED: MILRINONE-D5W 20 MG/100 ML 100 ML IV ONE (20:14)
[2021-07-04] MEDS: VANCOMYCIN 1G/250ML KIT 250 ML IV SCH (20:45)
[2021-07-04] MEDS: ATORVASTATIN 20 MG TABLET PO SCH (20:46)
[2021-07-04] MEDS ORDERED: AMIODARONE 900MG VIAL 450 MG in DEXTROSE 5%-WATER 250 ML IV SCH (22:00)
[2021-07-05] VITALS (22 sets, daily range): BP systolic 28–149; BP diastolic 25–93
[2021-07-05] MEDS: INSULIN HUMULIN R 100 UNIT/ML 3ML SQ SCH ×3 (00:22→12:09)
[2021-07-05 03:38] LABS: HEMATOCRIT 28.5 % (36-48); MEAN CORPUSCULAR HEMOGLOBIN 30.3 pg (27.0-33.0); MEAN CORPUSCULAR HGB CONC 31.9 g/dL (32.0-36.0); NUCLEATED RED BLOOD CELLS 8.4 % (0.0-0.19); PLATELET COUNT (AUTO) 90 K/uL (130-400); RED CELL DISTRIBUTION WIDTH 14.5 % (11.0-15.5); WHITE BLOOD COUNT (AUTO) 16.5 K/uL (4.8-10.8)
[2021-07-05] MEDS: NOREPINEPHRINE 4MG/NS 250ML 250 ML IV SCH ×2 (03:45→12:08)
[2021-07-05 03:47] LABS: CREATININE 0.6 mg/dL (0.5-1.5)
[2021-07-05 03:53] LABS: POTASSIUM 2.9 mmol/L (3.5-5.1)
[2021-07-05] MEDS: POTASSIUM CHLORIDE 20MEQ/100ML 100 ML IV PRN ×5 (03:54→08:28)
[2021-07-05 04:02] LABS: BAND NEUTROPHILS % (MANUAL) 12 % (0-2); LYMPHOCYTES % (MANUAL) 11 % (22-44); MONOCYTES % (MANUAL) 5 % (2-9); SEGMENTED NEUTROPHILS % 72 % (40-70)
[2021-07-05 04:03] LABS: MAN.DIFF COMMENT-IMPRESSION MANUAL DIFFERENTIAL; PLATELET MORPHOLOGY COMMENT DECREASED
[2021-07-05 05:04] LABS: ABG BASE EXCESS -1.2 mmol/L (-2.0-3.0); ABG HCO3 20.5 mmol/L (21.0-28.0); ABG OXYGEN SATURATION 95.8 % (95.0-99.0); ABG PCO2 26 mmHg (32-45)
[2021-07-05] MEDS ORDERED: SODIUM BICARB 50MEQ 50ML VIAL 50 ML ONE (05:13)
[2021-07-05] MEDS: MAGNESIUM 2GM PREMIX 50ML 50 ML IV PRN ×2 (05:24→08:29)
[2021-07-05] MEDS: INSULIN GLARGINE 100 UNITS/ML 10 ML VIAL SQ SCH (06:16)
[2021-07-05] MEDS: MEROPENEM 1 GM VIAL IVP SCH (07:23)
[2021-07-05] MEDS: ACETAMINOPHEN 325 MG TAB PO PRN (08:02)
[2021-07-05] MEDS: ASPIRIN 81MG CHEW TAB PO SCH (08:02)
[2021-07-05] MEDS: FAMOTIDINE 20MG VIAL IV SCH (08:21)
[2021-07-05] MEDS ORDERED: [UNRECOGNIZED DRUG - OTHER] IV PRN (08:30)
[2021-07-05] MEDS ORDERED: CALCIUM GLUC IV PRN (08:30)
[2021-07-05] MEDS: FUROSEMIDE 20MG VIAL IV SCH (08:30)
[2021-07-05] MEDS ORDERED: 0.9%NACL 1000ML 1,000 ML IV ONE (08:48)
[2021-07-05] MEDS: ENOXAPARIN SODIUM 40 MG/0.4 ML SYRINGE SQ SCH ×2 (09:00→14:53)
[2021-07-05 09:40] LABS: ABG BASE EXCESS -4.1 mmol/L (-2.0-3.0); ABG HCO3 19.8 mmol/L (21.0-28.0); ABG OXYGEN SATURATION 83.3 % (95.0-99.0); ABG PCO2 33 mmHg (32-45)
[2021-07-05 09:49] LABS: ABG BASE EXCESS 1.2 mmol/L (-2.0-3.0); ABG HCO3 23.9 mmol/L (21.0-28.0); ABG OXYGEN SATURATION 98.8 % (95.0-99.0); ABG PCO2 31 mmHg (32-45)
[2021-07-05] MEDS ORDERED: DEXMEDETOMIDINE HCL 200 MCG in 0.9%NACL 50ML 50 ML IV SCH (10:00)
[2021-07-05 11:23] LABS: CREATININE 1.1 mg/dL (0.5-1.5); MAGNESIUM 3.6 mg/dL (1.80-2.40); POTASSIUM 5.2 mmol/L (3.5-5.1)
[2021-07-05 11:29] LABS: ABG BASE EXCESS 3.2 mmol/L (-2.0-3.0); ABG OXYGEN SATURATION 94.6 % (95.0-99.0); ABG PCO2 34 mmHg (32-45)
[2021-07-05] MEDS ORDERED: NOREPINEPHRINE 8MG/NS 250 ML 250 ML IV ONE (13:37)
[2021-07-05] MEDS ORDERED: HYDROCORTISONE SOD SUCCINATE 100 MG/2 ML VIAL ONE (14:47)
[2021-07-05] MEDS ORDERED: HYDROCORTISONE SOD SUCCINATE 100 MG/2 ML VIAL IV SCH (15:00)
[2021-07-05] MEDS ORDERED: EPINEPHRINE PF 1MG AMP ONE (17:13)
[2021-07-05] MEDS ORDERED: LORAZEPAM 2 MG/ML 1 ML VIAL ONE (17:16)
[2021-07-05 17:23] LABS: MAGNESIUM 2.2 mg/dL (1.80-2.40); POTASSIUM 4.3 mmol/L (3.5-5.1)
[2021-07-05] MEDS ORDERED: FENTANYL 2500MCG+NS 250ML 250 ML IV SCH (17:30)
[2021-07-05] MEDS ORDERED: LEVETIRACETAM 1,500 MG in 0.9%NACL 100ML 100 ML IV ONE (17:45)
== END 2021-07-05 18:08 | DRG 235 ==
LOC: PREOBSVTOIN 12:56 → 2CH 13:09
PROVIDERS: ADMIT Thoracic Surgery (Cardiothoracic Vascular Surgery); ATTEND Thoracic Surgery (Cardiothoracic Vascular Surgery)
PROC: 5A02210 Assistance with Cardiac Output using Balloon Pump, Continuous (ICD-10-PCS; 2021-06-28)
PROC: 30233R1 Transfusion of Nonautologous Platelets into Peripheral Vein, Percutaneous Approach (ICD-10-PCS; 2021-06-28)
PROC: 30233N1 Transfusion of Nonautologous Red Blood Cells into Peripheral Vein, Percutaneous Approach (ICD-10-PCS; 2021-06-28)
PROC: 5A1955Z Respiratory Ventilation, Greater than 96 Consecutive Hours (ICD-10-PCS; 2021-06-28)
PROC: 0BH17EZ Insertion of Endotracheal Airway into Trachea, Via Natural or Artificial Opening (ICD-10-PCS; 2021-06-28)
PROC: 5A1221Z Performance of Cardiac Output, Continuous (ICD-10-PCS; 2021-06-28)
PROC: B246ZZ4 Ultrasonography of Right and Left Heart, Transesophageal (ICD-10-PCS; 2021-06-28)
PROC: 02100Z9 Bypass Coronary Artery, One Artery from Left Internal Mammary, Open Approach (ICD-10-PCS; principal; 2021-06-28 14:00)
PROC: 021209W Bypass Coronary Artery, Three Arteries from Aorta with Autologous Venous Tissue, Open Approach (ICD-10-PCS; 2021-06-28 14:00)
PROC: 06BQ4ZZ Excision of Left Saphenous Vein, Percutaneous Endoscopic Approach (ICD-10-PCS; 2021-06-28 14:00)
PROC: 5A12012 Performance of Cardiac Output, Single, Manual (ICD-10-PCS; 2021-07-05)
PROC: 5A12012 Performance of Cardiac Output, Single, Manual (ICD-10-PCS; 2021-07-05)
DX: I21.9 Acute myocardial infarction, unspecified (principal); G93.41 Metabolic encephalopathy; J96.01 Acute respiratory failure with hypoxia; I25.42 Coronary artery dissection; J95.1 Acute pulmonary insufficiency following thoracic surgery; N17.9 Acute kidney failure, unspecified; E87.0 Hyperosmolality and hypernatremia; I47.2 Ventricular tachycardia; I69.354 Hemiplegia and hemiparesis following cerebral infarction affecting left non-dominant side; J93.9 Pneumothorax, unspecified; J81.1 Chronic pulmonary edema; I97.130 Postprocedural heart failure following cardiac surgery; R57.0 Cardiogenic shock; I25.10 Atherosclerotic heart disease of native coronary artery without angina pectoris; D64.9 Anemia, unspecified; E78.00 Pure hypercholesterolemia, unspecified; I11.0 Hypertensive heart disease with heart failure; I50.810 Right heart failure, unspecified; D69.6 Thrombocytopenia, unspecified; D72.829 Elevated white blood cell count, unspecified; E66.9 Obesity, unspecified; E11.621 Type 2 diabetes mellitus with foot ulcer; L97.529 Non-pressure chronic ulcer of other part of left foot with unspecified severity; R79.89 Other specified abnormal findings of blood chemistry; E83.42 Hypomagnesemia; I48.91 Unspecified atrial fibrillation; I49.01 Ventricular fibrillation; I49.3 Ventricular premature depolarization; Z68.30 Body mass index [BMI] 30.0-30.9, adult; Z79.01 Long term (current) use of anticoagulants; Z79.82 Long term (current) use of aspirin; Z79.899 Other long term (current) drug therapy; Y83.8 Other surgical procedures as the cause of abnormal reaction of the patient, or of later complication, without mention of misadventure at the time of the procedure; Y92.89 Other specified places as the place of occurrence of the external cause
CPT/HCPCS: 36415; 36430; 36600; 71045; 71270; 73630; 80048; 80053; 80061; 80202; 82330; 82435; 82803; 82947; 82948; 83036; 83605; 83735; 83880; 84100; 84132; 84145; 84295; 84484; 85018; 85025; 85027; 85347; 85378; 85384; 85610; 85730; 86850; 86900; 86901; 86923; 87040; 87071; 87076; 87077; 87088; 87186; 87205; 92950; 93005; 93306; 93308; 93313; 94002; 94003; 94640; A7048; G0378; J0171; J0282; J0461; J0610; J0690; J1644; J1650; J1720; J1815; J1940; J1953; J2001; J2060; J2150; J2185; J2250; J2260; J2370; J2440; J2543; J2704; J2720; J2920; J3010; J3370; J3475; J3480; J3490; J7030; J7040; J7060; J7189; P9012; P9016; P9034; P9045; P9047; Q9967